=== PATIENT | female | born 2000 | race Caucasian/White ===

== ENCOUNTER 2021-01-09 12:00 | Emergency (ER) | payer OTHER ==
[~2021-01-09] VITALS: Ht 165.1 cm; Wt 75.0 kg
[2021-01-09 13:30] VITALS: BP 137/65
== END 2021-01-09 13:49 | disposition home or self-care (01) ==
LOC: EMS 12:00
DX: M54.50 Low back pain, unspecified (principal); M62.830 Muscle spasm of back; F17.210 Nicotine dependence, cigarettes, uncomplicated
CPT/HCPCS: 99283; Z7502

== ENCOUNTER 2021-02-10 14:32 | Emergency (ER) | payer BC, OTHER ==
[~2021-02-10] VITALS: Ht 157.5 cm; Wt 68.1 kg
[2021-02-10] MEDS ORDERED: IBUPROFEN 800 MG TABLET PO ONE (16:45)
[2021-02-10 17:05] VITALS: BP 114/63
== END 2021-02-10 17:37 | disposition home or self-care (01) ==
LOC: EMS 14:38
DX: S93.602A Unspecified sprain of left foot, initial encounter (principal); F17.210 Nicotine dependence, cigarettes, uncomplicated; X50.0XXA Overexertion from strenuous movement or load, initial encounter; Y93.89 Activity, other specified; Y92.89 Other specified places as the place of occurrence of the external cause; Y99.8 Other external cause status
CPT/HCPCS: 99283